=== PATIENT | female | born 1965 | race Caucasian/White ===

== ENCOUNTER 2018-03-07 11:10 | Emergency (ER) | payer BC ==
[2018-03-07 11:18] VITALS: BP 149/91; PULSE 107; RESP 18; TEMP 98.3
--- NOTE | 2018-03-07 11:34 | ED ---
Recheck HPI - General Chief Complaint: Recheck/Abnormal Lab/Rx Stated Complaint: rt arm numbness, vein bleeding Time Seen by Provider: 03/07/18 11:21 Source: patient, RN notes reviewed Mode of arrival: ambulatory Limitations: no limitations - History of Present Illness Initial Comments: 52-year-old female presents emergency Department chief complaint of right leg bleeding. Patient states she has varicose veins as states that started bleeding this morning. Patient went to urgent care referred her to the emergency department because she stated it was squirting. She states that she held pressure on it and states there is no active bleeding has not bled for over half an hour. Patient states she was also holding pressure for a long period time and developed some discomfort in her right antecubital region. States cannot felt tingly. She denies any focal weakness denies neck pain, headache. She states symptoms resolved after letting go of the pressure. Patient states she's never had this happen in the past. She states that she's never been evaluated by vascular surgeon. - Related Data Allergies Allergy/AdvReac Type Severity Reaction Status Date / Time No Known Allergies Allergy Verified 03/07/18 11:18 Review of Systems ROS Statement: Those systems with pertinent positive or pertinent negative responses have been documented in the HPI. ROS Other: All systems not noted in ROS Statement are negative. Past Medical History Past Medical History: No Reported History History of Any Multi-Drug Resistant Organisms: None Reported Past Surgical History: No Surgical Hx Reported Additional Past Surgical History / Comment(s): uterine ablation Past Psychological History: No Psychological Hx Reported Smoking Status: Never smoker Past Alcohol Use History: None Reported Past Drug Use History: None Reported General Exam Limitations: no limitations General appearance: alert, in no apparent distress Head exam: Present: atraumatic, normocephalic, normal inspection Neck exam: Present: normal inspection, full ROM. Absent: tenderness, meningismus, lymphadenopathy Respiratory exam: Present: normal lung sounds bilaterally. Absent: respiratory distress, wheezes, rales, rhonchi, stridor Cardiovascular Exam: Present: regular rate, normal rhythm, normal heart sounds. Absent: systolic murmur, diastolic murmur, rubs, gallop, clicks Extremities exam: Present: other (Bilateral upper extremity neurovascular intact full range of motion no tenderness, right lower extremity there is a small erythematous region that is pinpoint in size with her varicose pain was bleeding she has multiple varicosities noted of the lower extremity pedal pulses bilaterally.) Course Vital Signs 03/07/18 11:14 Temperature 98.3 F Pulse Rate 107 H Respiratory 18 Rate Blood Pressure 149/91 O2 Sat by Pulse 100 Oximetry Medical Decision Making - Medical Decision Making 52-year-old female presented for bleeding varicose vein. Patient has not had any bleeding for 30 minutes. Did explain that if this recurs she should apply pressure for 15 minutes. She can follow-up with Dr. Childs vascular surgery. She also went of right arm pain after holding pressure which has resolved. Patient has normal exam and return parameters were discussed. Disposition Clinical Impression: Varicose veins of both lower extremities, Bleeding from varicose vein Disposition: HOME SELF-CARE Condition: Stable Instructions: Varicose Veins (ED) Additional Instructions: Please return to the Emergency Department if symptoms worsen or any other concerns. Is patient prescribed a controlled substance at d/c from ED?: No Referrals: Stacey Estrada DO [Primary Care Provider] - 1-2 days Sunil Childs MD [STAFF PHYSICIAN] - 1-2 days Time of Disposition: 11:34
== END 2018-03-07 11:35 | disposition home or self-care (01) ==
LOC: EC 11:10
DX: I83.893 Varicose veins of bilateral lower extremities with other complications (principal)
CPT/HCPCS: 99283

== ENCOUNTER → 2024-03-30 | Outpatient (CLI) | payer MEDICAID ==
--- NOTE | 2024-05-03 16:48 | MM ---
Reason for Exam: Screening (asymptomatic). Last mammogram was performed 1 year(s) and 2 month(s) ago. Risk Values: Ainsley 5 year model risk: 0.8%. NCI Lifetime model risk: 5.2%. Prior Study Comparison: 10/30/2014 Bilateral Screening Mammogram, [facility]. 07/03/2016 Bilateral Screening Mammogram, [facility]. 07/12/2020 Bilateral Screening Mammogram, [facility]. 12/03/2021 Bilateral Screening Mammogram, [facility]. 01/27/2023 Bilateral Screening Mammogram, [facility]. Tissue Density: There are scattered areas of fibroglandular density. Findings: Analyzed By CAD. Asymmetric density on the right CC view remains unchanged. There is no suspicious group of microcalcifications or new suspicious mass in either breast. Overall Assessment: Benign, BI-RAD 2 Management: Screening Mammogram of both breasts in 1 year. . Patient should continue monthly self-breast exams. A clinical breast exam by your physician is recommended on an annual basis. This exam should not preclude additional follow-up of suspicious palpable abnormalities. Note on Ainsley scores and lifetime risk: 1. A Ainsley score greater than 3% is considered moderate risk. If this is the case, consider specialist referral to assess eligibility for a risk reducing agent. 2. If overall lifetime risk for the development of breast cancer is 20% or higher, the patient may qualify for future screening with alternating mammogram and breast MRI. Electronically signed and approved by: Yolanda Villar M.D. Radiologist
== END | disposition home or self-care (01) ==
LOC: RADMAMWWP 12:00
PROVIDERS: ATTEND Obstetrics & Gynecology
DX: Z12.31 Encounter for screening mammogram for malignant neoplasm of breast
CPT/HCPCS: 77063; 77067